=== PATIENT | male | born 1965 | race Caucasian/White ===

== ENCOUNTER 2020-01-26 14:25 | Inpatient (IN) | payer OTHER, SELFPAY ==
[~2020-01-26] VITALS: Ht 165.1 cm; Wt 99.8 kg
[2020-01-26 14:38] VITALS: Ht 165.1 cm; Wt 99.8 kg
[2020-01-26 15:21] LABS: BASOPHIL % 0.3 % (0-2); PLATELET COUNT 169 x10^3mcL (130-400); RED CELL DISTRIBUTION WIDTH 13.5 % (11.5-14.5)
[2020-01-26 15:33] LABS: CALCIUM 9.6 mg/dL (8.5-10.1); CARBON DIOXIDE 38.2 mmol/L (21-32); CHLORIDE SERUM 97 mmol/L (98-107); GFR1 > 60 mL/min; GLUCOSE SERUM 124 mg/dL (74-106); POTASSIUM SERUM 4.3 mmol/L (3.5-5.1); SODIUM SERUM 138 mmol/L (136-145)
[2020-01-26 15:39] LABS: ALKALINE PHOSPHATASE 86 U/L (46-116); ALT/SGPT 27 U/L (16-63); AST/SGOT 16 U/L (15-37); BILIRUBIN TOTAL 0.4 mg/dL (0.20-1.00); C REACTIVE PROTEIN 0.8 mg/dL (<=0.9); LACTIC DEHYDROGENASE (LDH) 138 U/L (100-190); TOTAL PROTEIN, SERUM 6.9 g/dL (6.4-8.2)
[2020-01-26 15:42] LABS: ALBUMIN 3.2 g/dL (3.4-5.0)
[2020-01-26 16:05] LABS: microscopic required? NO
[2020-01-26 16:11] LABS: UA SPECIFIC GRAVITY 1.015 (1.005-1.035); urine erythrocyte NEGATIVE (NEGATIVE)
[2020-01-26] MEDS ORDERED: LASIX40 MG PO (16:47)
[2020-01-26] MEDS ORDERED: RISPERDAL1 M1 PO (16:48)
[2020-01-26 17:34] VITALS: BP 92/74
[2020-01-26 17:56] VITALS: BP 123/64
[2020-01-26 18:42] VITALS: BP 123/64
[2020-01-26 21:00] VITALS: BP 125/76
[2020-01-27 06:13] VITALS: BP 128/81
[2020-01-27 07:30] VITALS: BP 134/75
[2020-01-27 12:57] VITALS: BP 131/72
[2020-01-27 17:23] LABS: BASOPHIL % 0.8 % (0-2); PLATELET COUNT 179 x10^3mcL (130-400); RED CELL DISTRIBUTION WIDTH 12.9 % (11.5-14.5)
[2020-01-27 17:47] LABS: CALCIUM 9.3 mg/dL (8.5-10.1); CARBON DIOXIDE 32.7 mmol/L (21-32); CHLORIDE SERUM 94 mmol/L (98-107); CREATININE SERUM 1.2 mg/dL (0.7-1.3); GFR1 > 60 mL/min; GLUCOSE SERUM 275 mg/dL (74-106); POTASSIUM SERUM 4.6 mmol/L (3.5-5.1); SODIUM SERUM 134 mmol/L (136-145)
[2020-01-27 18:39] VITALS: BP 129/98
[2020-01-28 06:25] VITALS: BP 124/83
[2020-01-28 08:35] VITALS: BP 130/67
[2020-01-28] MEDS ORDERED: IPRATROPIUM BROM3 M2 HHN (11:16)
[2020-01-28] MEDS ORDERED: LEVAQUIN750 MG PO (11:16)
[2020-01-28] MEDS ORDERED: DELTASONE20 MG PO (11:17)
[2020-01-28 11:59] VITALS: BP 105/54
[2020-01-28 16:37] VITALS: BP 129/62
[2020-01-29 05:34] VITALS: BP 127/67
[2020-01-29 08:28] VITALS: BP 131/75
[2020-01-29 12:04] VITALS: BP 135/61
== END 2020-01-29 14:40 | DRG 133 ==
LOC: ED 14:25 → DU 15:25
PROVIDERS: Emergency Medicine; ADMIT Hospitalist
DX: J96.22 Acute and chronic respiratory failure with hypercapnia (principal); J18.9 Pneumonia, unspecified organism; I50.9 Heart failure, unspecified; F20.9 Schizophrenia, unspecified; J44.0 Chronic obstructive pulmonary disease with (acute) lower respiratory infection; J44.1 Chronic obstructive pulmonary disease with (acute) exacerbation; Z88.8 Allergy status to other drugs, medicaments and biological substances; N18.9 Chronic kidney disease, unspecified; Z20.828 Contact with and (suspected) exposure to other viral communicable diseases; J96.21 Acute and chronic respiratory failure with hypoxia
CPT/HCPCS: 36600; 83880; 85378; 87804; G0378; J1644; J1956; J2920; J7040; J7613; J7644; Q0092; U0003-CS